=== PATIENT | female | born 1950 | race Caucasian/White ===

== ENCOUNTER 2017-11-04 17:07 | Inpatient (IN) | payer OTHER ==
[~2017-11-04] VITALS: Ht 154.9 cm; Wt 79.4 kg
--- NOTE | ~2017-11-04 | EKG ---
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
--- NOTE | ~2017-11-04 | EKG ---
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
--- NOTE | ~2017-11-04 | EKG ---
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
--- NOTE | ~2017-11-04 | HC ---
[facility] [place] [address] CONSULTATION Name: CHAN GEE Room #: 460-[facility] IN M.R.#: [id number] Admission: 11/04/17 Attend Phys: Haim Tellez Discharge: Date of : 54 Report #: [id number] THIS REPORT FOR: //name// CC: [place] physician/PCP Haim Tellez DATE OF SERVICE: 11/06/2017 CONSULTATION: Infectious Diseases. HISTORY OF PRESENT ILLNESS: The patient is a 67-year-old female, admitted to the hospital on 11/04/2017 with complaints of headache, fevers, weakness, and some dysuria. This had been going on since approximately 11/02/2017. Workup demonstrated positive antigens for influenza A and influenza B. In addition, there was evidence of urinary tract infection and a gram-negative osvaldo in 08/08 blood cultures. In this setting, Infectious Disease consultation was requested. PAST MEDICAL HISTORY: The patient has history of hypertension, gastroesophageal reflux and arthritis. SOCIAL HISTORY: The patient is . She has been living in [place] for 10 [place]. REVIEW OF SYSTEMS: Limited by language barrier. The patient says headache is better. She was unable to tell me of any oral problems. No stiffness of the neck. The patient has some dyspnea with exertion, but not at rest. The patient denies cough or chest pain. The patient denies nausea, denies any trouble with her bowels. She says her urinary symptoms have resolved. She is having pain in her hands. PHYSICAL EXAMINATION: GENERAL: The patient appears ill, uncomfortable, not in any distress. VITAL SIGNS: Show temperature 102.8. Blood pressure is stable. SKIN: Shows no rash, no lesions. ENT: Negative. PSYCHIATRIC: I believe mentation is appropriate. who also speaks very little Slovenian was in the room and they seemed to be having a normal conversation in Belarusian. NECK: Supple. No photophobia. HEENT: Oral cavity is normal. HEART: Sounds S1, S2. CHEST: Breath sounds are clear. ABDOMEN: Belly is obese, soft, minimally tender. EXTREMITIES: Unremarkable. [facility] [address] [place] [address] CONSULTATION Name: CHAN GEE Room #: 460-P [facility] IN M.R.#: [id number] Admission: 11/04/17 Attend Phys: Haim Long Elifsamuel Discharge: Date of : 54 Report #: [id number] LABORATORY DATA: White count was 16,000 on admission, is down to 8.1, hemoglobin 10.1, hematocrit 31.2. Electrolytes are normal. BUN is 17, creatinine has gone from 1.6 to 1.3. Liver function tests are normal. Troponin is normal. Urinalysis shows 6-15 white cells. Urine culture is pending. Blood culture x 1 has gram-negative osvaldo. Repeat blood cultures x 2 are pending. Influenza antigens are positive for both influenza A and influenza B. Chest x-ray shows mild basilar densities suggesting atelectasis. CT of the head shows no intracranial abnormalities. The visualized sinuses and mastoids were clear. IMPRESSION: 1. Influenza. 2. Urinary tract infection with gram-negative bacteremia. The patient is improving on Rocephin. This covers most of the community-type enteric gram negatives. The pseudomonas is the most common germ, which would not be covered by Rocephin. On account of the patient's stable response to treatment, suggest we are probably looking at a sensitive organism. It is unusual to have both influenza A and influenza B. The patient is started on Tamiflu and isolated, which is appropriate. We may be starting the Tamiflu a bit late as the patient indeed became symptomatic initially on Tuesday. However, with the urosepsis it is really hard to know if the initial fever was influenza or urinary problem. For now, we will continue supportive therapy, oseltamivir and Rocephin. We will obtain followup CBC, await results of cultures. By: [id number] Josef Em MD /nt
[2017-11-04 17:16] VITALS: BP 123/53
[2017-11-04 17:36] LABS: ABSOLUTE NEUTROPHILS 13.2 thou/uL (1.4-8.2); BASOPHILS 0.9 % (0.0-2.0); EOSINOPHILS 0.1 % (0.0-3.0); HEMATOCRIT 37.2 % (37.0-47.0); HEMOGLOBIN 12.3 gm/dL (12.0-15.0); LYMPHOCYTES 9.9 % (24.0-44.0); MCH 27.6 pg (26.0-34.0); MCHC 33.2 g/dL (28.0-37.0); MCV 83.1 fL (80.0-100.0); PLATELET COUNT 325 thou/uL (150-400); POLYS 82.1 % (36.0-66.0); RBC 4.47 mil/uL (4.20-5.00); RDW 15.2 % (10.5-14.5); WBC 16.1 thou/uL (4.0-11.0)
[2017-11-04 17:44] LABS: ANION GAP 12 mmol/L (7-16); BUN 23 mg/dL (7-18); CALCIUM 8.7 mg/dL (8.5-10.1); CHLORIDE 101 mmol/L (98-107); CO2 23 mmol/L (21-32); CREATININE 1.6 mg/dL (0.6-1.0); GLUCOSE 121 mg/dL (74-106); POTASSIUM 3.3 mmol/L (3.5-5.1); SODIUM 136 mmol/L (136-145)
[2017-11-04 17:52] LABS: ALBUMIN 2.9 g/dL (3.4-5.0); SGOT 19 U/L (15-37); SGPT 21 U/L (30-65); TOTAL BILIRUBIN 0.6 mg/dL (<0.1-1.0); TOTAL PROTEIN 7.4 g/dL (6.4-8.2); TROPONIN-I < 0.04 ng/mL (<0.06)
[2017-11-04 17:54] LABS: PROTIME 10.7 Seconds (9.3-11.4)
[2017-11-04] MEDS ORDERED: TYLENOL325 MG PO (18:56)
[2017-11-04 19:41] LABS: URINE BILIRUBIN NEGATIVE (Negative); URINE BLOOD 2+ (Negative); URINE CLARITY CLEAR; URINE COLOR YELLOW; URINE GLUCOSE-RANDOM* NEGATIVE (Negative); URINE KETONES NEGATIVE (Negative); URINE LEUKOCYTES 2+ (Negative); URINE NITRITE NEGATIVE (Negative); URINE PROTEIN (DIPSTICK) 1+ (Negative); URINE SPECIFIC GRAVITY 1.015 (1.005-1.035); URINE UROBILINOGEN 0.2 E.U./dl (0.2-1.0)
[2017-11-04 19:49] LABS: BACTERIA 1-9 Few /HPF (None Seen); CASTS None Seen /LPF (None Seen); CRYSTALS None Seen /LPF (None Seen); SQUAMOUS 0-3 Few /LPF (0-3); URINE RBC 0-2 Rare /HPF (0-2)
[2017-11-04 19:52] VITALS: BP 124/49
[2017-11-04 20:09] VITALS: BP 114/41
[2017-11-04 20:48] VITALS: BP 101/81
[2017-11-05 04:20] VITALS: BP 118/69
[2017-11-05 06:03] LABS: HEMATOCRIT 33.4 % (37.0-47.0); HEMOGLOBIN 10.7 gm/dL (12.0-15.0); MCHC 32.1 g/dL (28.0-37.0); MCV 84.2 fL (80.0-100.0); RBC 3.97 mil/uL (4.20-5.00); RDW 15.1 % (10.5-14.5); WBC 13.7 thou/uL (4.0-11.0)
[2017-11-05 06:11] LABS: CALCIUM 8.1 mg/dL (8.5-10.1); CREATININE 1.5 mg/dL (0.6-1.0); POTASSIUM 3.5 mmol/L (3.5-5.1)
[2017-11-05 07:45] VITALS: BP 105/49
[2017-11-05 15:43] LABS: URINE BILIRUBIN NEGATIVE (Negative); URINE BLOOD 2+ (Negative); URINE CLARITY CLEAR; URINE COLOR YELLOW; URINE GLUCOSE-RANDOM* NEGATIVE (Negative); URINE KETONES NEGATIVE (Negative); URINE NITRITE-REFLEX NEGATIVE (Negative); URINE PROTEIN (DIPSTICK) 1+ (Negative); URINE UROBILINOGEN 0.2 E.U./dl (0.2-1.0)
[2017-11-05 15:44] LABS: URINE LEUKOCYTES-REFLEX 1+ (Negative)
[2017-11-05 15:49] LABS: BACTERIA-REFLEX 1-9 Few /HPF (None Seen); CASTS None Seen /LPF (None Seen); CRYSTALS None Seen /LPF (None Seen); SQUAMOUS 0-3 Few /LPF (0-3); URINE WBC-REFLEX 6-15 Few /HPF (0-5)
[2017-11-05 15:50] LABS: URINE RBC 0-2 Rare /HPF (0-2)
[2017-11-05 16:00] VITALS: BP 116/49
[2017-11-05 20:41] VITALS: BP 96/93
[2017-11-05 23:11] VITALS: BP 121/63
[2017-11-06 04:58] VITALS: BP 121/56
[2017-11-06 08:00] VITALS: BP 119/51
[2017-11-06 11:52] LABS: HEMATOCRIT 31.2 % (37.0-47.0); HEMOGLOBIN 10.1 gm/dL (12.0-15.0); MCH 27.1 pg (26.0-34.0); MCHC 32.3 g/dL (28.0-37.0); RBC 3.71 mil/uL (4.20-5.00); RDW 15.5 % (10.5-14.5); WBC 8.1 thou/uL (4.0-11.0)
[2017-11-06 12:07] LABS: CALCIUM 8.6 mg/dL (8.5-10.1); CREATININE 1.3 mg/dL (0.6-1.0); POTASSIUM 3.7 mmol/L (3.5-5.1)
[2017-11-06 16:00] VITALS: BP 140/54
[2017-11-06 19:32] VITALS: BP 147/52
[2017-11-07 03:54] VITALS: BP 126/69
[2017-11-07 06:33] LABS: HEMATOCRIT 29.8 % (37.0-47.0); HEMOGLOBIN 9.7 gm/dL (12.0-15.0); MCH 27.1 pg (26.0-34.0); MCHC 32.4 g/dL (28.0-37.0); MCV 83.9 fL (80.0-100.0); RBC 3.55 mil/uL (4.20-5.00); RDW 15.7 % (10.5-14.5); WBC 7.6 thou/uL (4.0-11.0)
[2017-11-07 06:53] LABS: CALCIUM 8.4 mg/dL (8.5-10.1); CREATININE 1.2 mg/dL (0.6-1.0); MAGNESIUM 1.8 mg/dL (1.8-2.4); POTASSIUM 3.6 mmol/L (3.5-5.1)
[2017-11-07 07:42] VITALS: BP 135/62
[2017-11-07 16:23] VITALS: BP 141/67
[2017-11-07 19:19] VITALS: BP 163/58
[2017-11-08 04:27] VITALS: BP 138/68
[2017-11-08 06:13] LABS: HEMATOCRIT 29.1 % (37.0-47.0); HEMOGLOBIN 9.5 gm/dL (12.0-15.0); MCH 27.4 pg (26.0-34.0); MCHC 32.7 g/dL (28.0-37.0); MCV 83.6 fL (80.0-100.0); RBC 3.49 mil/uL (4.20-5.00); RDW 15.5 % (10.5-14.5); WBC 6.8 thou/uL (4.0-11.0)
[2017-11-08 06:16] LABS: CALCIUM 8.4 mg/dL (8.5-10.1); MAGNESIUM 1.7 mg/dL (1.8-2.4); POTASSIUM 3.8 mmol/L (3.5-5.1)
[2017-11-08 08:00] VITALS: BP 151/71
[2017-11-08] MEDS ORDERED: BACTRIM DS TAB1 EACH PO (14:28)
[2017-11-08 14:33] VITALS: BP 151/71
[2017-11-08] MEDS ORDERED: BACTRIM DS TAB1 EAC1 PO (14:34)
== END 2017-11-08 15:21 | disposition home or self-care (01) | DRG 683 ==
LOC: ER 17:07 → EROBS 19:41 → 4W 19:41 → ENTRNSPT 11-08 15:06 → EDTRNSPTSTS 11-08 15:11 → 4W 11-08 15:21
PROVIDERS: Internal Medicine; Nurse Practitioner Family; Physician Assistant
DX: N17.9 Acute kidney failure, unspecified (principal); N39.0 Urinary tract infection, site not specified; E87.6 Hypokalemia; I10 Essential (primary) hypertension; K21.9 Gastro-esophageal reflux disease without esophagitis; M19.90 Unspecified osteoarthritis, unspecified site; J11.1 Influenza due to unidentified influenza virus with other respiratory manifestations; B96.20 Unspecified Escherichia coli [E. coli] as the cause of diseases classified elsewhere
CPT/HCPCS: 10040

== ENCOUNTER 2021-07-18 19:49 | Emergency (ER) | payer OTHER ==
[~2021-07-18] VITALS: Ht 152.4 cm; Wt 81.7 kg
[~2021-07-18 19:49] MED LIST: BACTRIM DS TAB1 EAC1 PO; BACTRIM DS TAB1 EACH PO; TYLENOL325 MG PO
[2021-07-18] MEDS ORDERED: ASA81BEC PO (19:57)
[2021-07-18] MEDS ORDERED: VASOTEC20 MG PO (19:57)
[2021-07-18] MEDS ORDERED: OMEPRAZOLE 20 M20 M1 PO (19:57)
[2021-07-18 20:42] LABS: HEMOGLOBIN 8.2 gm/dL (12.0-15.0); WBC 10.2 thou/uL (4.0-11.0)
[2021-07-18 20:44] LABS: HEMATOCRIT 27.6 % (37.0-47.0); MCHC 29.8 g/dL (28.0-37.0); PLATELET COUNT 401 thou/uL (150-400); RBC 4.31 mil/uL (4.20-5.00); RDW 19.9 % (10.5-14.5)
[2021-07-18 20:47] LABS: CALCIUM 8.9 mg/dL (8.5-10.1); CREATININE 1.3 mg/dL (0.6-1.0); POTASSIUM 4.1 mmol/L (3.5-5.1)
[2021-07-18 21:01] LABS: URINE BILIRUBIN NEGATIVE (Negative); URINE BLOOD NEGATIVE (Negative); URINE CLARITY CLEAR; URINE COLOR YELLOW; URINE GLUCOSE-RANDOM* NEGATIVE (Negative); URINE KETONES NEGATIVE (Negative); URINE LEUKOCYTES-REFLEX NEGATIVE (Negative); URINE NITRITE-REFLEX NEGATIVE (Negative); URINE PROTEIN (DIPSTICK) NEGATIVE (Negative); URINE UROBILINOGEN 0.2 E.U./dl (0.2-1.0)
[2021-07-18 21:04] LABS: ABSOLUTE NEUTROPHILS 7.9 thou/uL (1.4-8.2)
[2021-07-18 21:05] LABS: ANISOCYTOSIS 2+; HYPOCHROMASIA 3+; MICROCYTES 3+
[2021-07-18 21:06] LABS: TARGET CELLS FEW
[2021-07-18 22:05] VITALS: BP 192/69
--- NOTE | 2021-07-19 10:24 | EKG ---
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 07/19/21 [phone] Venkata Molina MD, FACC /EPI
== END 2021-07-18 22:09 | disposition home or self-care (01) ==
LOC: ER 19:49
PROVIDERS: Student in an Organized Health Care Education/Training Program
DX: I10 Essential (primary) hypertension (principal); R42 Dizziness and giddiness; K21.9 Gastro-esophageal reflux disease without esophagitis; M19.90 Unspecified osteoarthritis, unspecified site; Z79.899 Other long term (current) drug therapy; Z79.82 Long term (current) use of aspirin; Z79.891 Long term (current) use of opiate analgesic